=== PATIENT | male | born 1975 | race Caucasian/White ===

== ENCOUNTER 2021-11-04 21:40 | Emergency (ER) | payer BC ==
[2021-11-04 22:20] LABS: HEMOGLOBIN 16.7 gm/dl (14.0-17.5); RED BLOOD COUNT 4.94 M/UL (4.20-5.50); WHITE BLOOD COUNT 13.9 K/UL (4.5-11.0)
[2021-11-04 22:41] LABS: BUN/CREATININE RATIO 14 (0-10)
== END 2021-11-05 01:53 | disposition home or self-care (01) ==
LOC: ER1 21:40
PROVIDERS: Physician Assistant Medical
DX: R07.89 Other chest pain (principal); R00.2 Palpitations; F17.210 Nicotine dependence, cigarettes, uncomplicated
CPT/HCPCS: 71045; 80053; 82550; 82553; 84439; 84443; 84484; 85025; 93005; 99285

== ENCOUNTER → 2021-12-10 | Outpatient (CLI) | payer BC | LOC: LAB 08:56 | DX: Z00.00 Encounter for general adult medical examination without abnormal findings (principal) | CPT/HCPCS: 36415; 80061 ==

== ENCOUNTER → 2021-12-15 | Outpatient (CLI) | payer BC | LOC: HEART 5 07:47 | DX: R00.2 Palpitations (principal) | CPT/HCPCS: 93306 ==